=== PATIENT | female | born 1990 | race Two or more races ===

== ENCOUNTER 2023-04-30 13:00 | Inpatient (IN) | payer OTHER ==
[2023-04-30 13:53] VITALS: BMI 26.6
[2023-04-30] MEDS ORDERED: IBUPROFEN 600 MG TABLET (FP) PO PRN (15:53)
[2023-04-30] MEDS ORDERED: ONDANSETRON *ODT* 4 MG TABLET SL PRN (15:53)
[2023-04-30] MEDS ORDERED: LOPERAMIDE HCL 2 MG CAPSULE PO PRN (15:53)
[2023-04-30] MEDS ORDERED: DICYCLOMINE HCL 10 MG CAPSULE PO PRN (15:53)
[2023-04-30] MEDS ORDERED: IBUPROFEN 400 MG TABLET (FP) PO PRN (15:53)
[2023-04-30] MEDS ORDERED: BENZONATATE 200 MG CAPSULE PO PRN (15:53)
[2023-04-30] MEDS ORDERED: POLYETHYLENE GLYCOL (HEALTHYLAX) 3350 17 GM PACKET PO PRN (15:53)
[2023-04-30] MEDS ORDERED: ACETAMINOPHEN 325 MG TABLET (FP) PO PRN (15:53)
[2023-04-30] MEDS ORDERED: NALOXONE HCL 0.4 MG/ML VIAL IM PRN (15:53)
[2023-04-30] MEDS ORDERED: MAGNESIUM HYDROX 2400MG/30ML ORAL SUSPENSION 30 ML CUP PO PRN (15:53)
[2023-04-30] MEDS ORDERED: NALOXONE HCL (KLOXXADO) 8 MG SPRAY NS PRN (15:53)
[2023-04-30] MEDS ORDERED: MAG HYDROX/AL HYDROX/SIMETH 30 ML UNIT-DOSE CUP PO PRN (15:53)
[2023-04-30] MEDS ORDERED: BISMUTH SUBSALICYLATE 524 MG/30 ML PO PRN (15:53)
[2023-04-30] MEDS: ALBUTEROL SO4 HFA INHALER IH PRN (18:08)
[2023-04-30] MEDS: PRENATAL VITAMINS W/ FOLIC ACID TABLET (FP) PO SCH (18:09)
[2023-04-30] MEDS: NICOTINE 21 MG/24 HOURS TOPICAL PATCH TD SCH (18:09)
[2023-04-30] MEDS: hydrOXYzine PAMOATE 25 MG CAPSULE (FP) PO PRN (22:12)
[2023-04-30] MEDS: MELATONIN 5 MG TABLETS PO SCH (22:13)
[2023-04-30] MEDS: THIAMINE HCL 100 MG TABLET (FP) PO SCH (22:13)
[2023-04-30] MEDS: METHOCARBAMOL 500 MG TABLET PO PRN (22:13)
[2023-05-01] MEDS: ALBUTEROL SO4 HFA INHALER IH PRN ×2 (05:55→14:17)
[2023-05-01] MEDS ORDERED: chlordiazePOXIDE HCL 10 MG CAPSULE PO PRN (09:36)
[2023-05-01 10:05] LABS: HEMATOCRIT 36.8 % (32.4-45.2); HEMOGLOBIN 12.4 GM/dL (10.7-15.3); MCH 32.8 pg (25.7-33.7); MCHC 33.7 g/dl (32.0-36.0); MEAN CELL VOLUME 97.3 fl (80-96); MEAN PLT VOLUME 8.7 fl (7.5-11.1); PLATELET COUNT 297 10^3/uL (134-434); RBC 3.78 M/mm3 (3.60-5.2); RDW 17.5 % (11.6-15.6); WHITE BLOOD COUNT 3.9 K/mm3 (4.0-10.0)
[2023-05-01 10:28] LABS: CHLORIDE 110 mmol/L (98-107); POTASSIUM 3.8 mmol/L (3.5-5.1); SODIUM 139 mmol/L (136-145)
[2023-05-01] MEDS: PRENATAL VITAMINS W/ FOLIC ACID TABLET (FP) PO SCH (10:29)
[2023-05-01] MEDS: NICOTINE 21 MG/24 HOURS TOPICAL PATCH TD SCH (10:29)
[2023-05-01 10:34] LABS: CALCIUM 8.3 mg/dL (8.5-10.1)
[2023-05-01 10:35] LABS: ALBUMIN 3.4 g/dl (3.4-5.0); ANION GAP 4 mmol/L (4-13); BLOOD UREA NITROGEN 9.9 mg/dL (7-18); CO2 24 mmol/L (21-32); GLUCOSE,RANDOM 92 mg/dL (74-106)
[2023-05-01 10:38] LABS: CREATININE 0.7 mg/dL (0.55-1.3); SGOT/AST 21 U/L (15-37); SGPT/ALT 25 U/L (13-61)
[2023-05-01 10:40] LABS: BILIRUBIN,TOTAL 0.6 mg/dL (0.2-1); TOT PROT 6.7 g/dl (6.4-8.2)
[2023-05-01 10:41] LABS: ALK PHOS 85 U/L (45-117)
[2023-05-01] MEDS ORDERED: cloNIDine HCL 0.1 MG TABLET PO PRN (11:37)
[2023-05-01 11:39] LABS: HIV INTERPRETATION NEGATIVE (NEGATIVE)
[2023-05-01] MEDS ORDERED: FLU VACCINE (FLULAVAL) PF 60 MCG/0.5 ML SYRINGE 2023-2024 IM ONE (12:00)
[2023-05-01] MEDS ORDERED: PNEUMOCOCCAL 23 VACCINE 0.5 ML VIAL IM ONE (12:00)
[2023-05-01] MEDS: chlordiazePOXIDE HCL 25 MG CAPSULE PO SCH ×2 (17:13→22:04)
[2023-05-01] MEDS: guaiFENesin 600 MG TABLET.ER (FP) PO PRN (17:18)
[2023-05-01] MEDS: THIAMINE HCL 100 MG TABLET (FP) PO SCH (22:03)
[2023-05-01] MEDS: MELATONIN 5 MG TABLETS PO SCH (22:04)
[2023-05-02] MEDS ORDERED: chlordiazePOXIDE 5 MG CAPSULE ONE (05:30)
[2023-05-02] MEDS: chlordiazePOXIDE HCL 25 MG CAPSULE PO SCH ×4 (05:31→22:15)
[2023-05-02] MEDS: ALBUTEROL SO4 HFA INHALER IH PRN (10:18)
[2023-05-02] MEDS: PRENATAL VITAMINS W/ FOLIC ACID TABLET (FP) PO SCH (10:18)
[2023-05-02] MEDS: NICOTINE 21 MG/24 HOURS TOPICAL PATCH TD SCH (10:18)
[2023-05-02] MEDS: guaiFENesin 600 MG TABLET.ER (FP) PO PRN (17:25)
[2023-05-02] MEDS: hydrOXYzine PAMOATE 25 MG CAPSULE (FP) PO PRN (17:29)
[2023-05-02] MEDS: MELATONIN 5 MG TABLETS PO SCH (22:14)
[2023-05-02] MEDS: METHOCARBAMOL 500 MG TABLET PO PRN (22:14)
[2023-05-02] MEDS: THIAMINE HCL 100 MG TABLET (FP) PO SCH (22:14)
[2023-05-03] MEDS: chlordiazePOXIDE HCL 10 MG CAPSULE PO SCH ×4 (05:20→22:50)
[2023-05-03] MEDS: ALBUTEROL SO4 HFA INHALER IH PRN ×3 (05:20→17:33)
[2023-05-03] MEDS: METHOCARBAMOL 500 MG TABLET PO PRN (10:10)
[2023-05-03] MEDS: PRENATAL VITAMINS W/ FOLIC ACID TABLET (FP) PO SCH (10:10)
[2023-05-03] MEDS: NICOTINE 21 MG/24 HOURS TOPICAL PATCH TD SCH (10:10)
[2023-05-03] MEDS ORDERED: diphenhydrAMINE HCL 25 MG CAPSULE (FP) PO ONE (16:36)
[2023-05-03] MEDS: MELATONIN 5 MG TABLETS PO SCH (22:50)
[2023-05-03] MEDS: THIAMINE HCL 100 MG TABLET (FP) PO SCH (22:50)
[2023-05-04] MEDS: chlordiazePOXIDE HCL 10 MG CAPSULE PO SCH ×2 (05:33→17:43)
[2023-05-04] MEDS: ALBUTEROL SO4 HFA INHALER IH PRN ×3 (05:42→17:50)
[2023-05-04] MEDS: NICOTINE 21 MG/24 HOURS TOPICAL PATCH TD SCH (09:25)
[2023-05-04] MEDS: PRENATAL VITAMINS W/ FOLIC ACID TABLET (FP) PO SCH (09:25)
[2023-05-04] MEDS: hydrOXYzine PAMOATE 25 MG CAPSULE (FP) PO PRN ×2 (14:06→22:22)
[2023-05-04] MEDS ORDERED: chlordiazePOXIDE 5 MG CAPSULE ONE (16:35)
[2023-05-04] MEDS: BENZOCAINE/MENTHOL (CHLORASEPTIC ) LOZENGE MM PRN ×2 (17:46→22:40)
[2023-05-04] MEDS: MELATONIN 5 MG TABLETS PO SCH (22:22)
[2023-05-04] MEDS: METHOCARBAMOL 500 MG TABLET PO PRN (22:22)
[2023-05-04] MEDS: THIAMINE HCL 100 MG TABLET (FP) PO SCH (22:23)
[2023-05-05] MEDS ORDERED: chlordiazePOXIDE HCL 10 MG CAPSULE PO ONE (05:00)
[2023-05-05] MEDS: ALBUTEROL SO4 HFA INHALER IH PRN (05:42)
[2023-05-05 10:24] VITALS: BP 128/78; PULSE 70; RESP 16; TEMP 97.5
[2023-05-05] MEDS: NICOTINE 21 MG/24 HOURS TOPICAL PATCH TD SCH (10:43)
[2023-05-05] MEDS: PRENATAL VITAMINS W/ FOLIC ACID TABLET (FP) PO SCH (10:43)
== END 2023-05-05 10:20 | disposition home or self-care (01) | DRG 774 ==
LOC: YASAS 13:00 → Y6N 16:35
PROVIDERS: ADMIT Allergy & Immunology; ATTEND Allergy & Immunology
PROC: HZ2ZZZZ Detoxification Services for Substance Abuse Treatment (ICD-10-PCS; principal; 2023-04-30)
DX: F10.230 Alcohol dependence with withdrawal, uncomplicated (principal); F14.10 Cocaine abuse, uncomplicated; F17.210 Nicotine dependence, cigarettes, uncomplicated; F41.9 Anxiety disorder, unspecified; J45.20 Mild intermittent asthma, uncomplicated; L27.2 Dermatitis due to ingested food; Z91.012 Allergy to eggs; Z91.010 Allergy to peanuts
CPT/HCPCS: 36415; 80053; 80307; 81025; 85027; 86780; 87389; 87635; 87811; 90686; 90732; 93005; 93010; G0008; G0009

== ENCOUNTER 2023-06-18 11:55 | Inpatient (IN) | payer OTHER ==
[2023-06-18 13:27] VITALS: BMI 26.6
[2023-06-18] MEDS ORDERED: BENZONATATE 200 MG CAPSULE PO PRN (14:04)
[2023-06-18] MEDS ORDERED: ONDANSETRON *ODT* 4 MG TABLET SL PRN (14:04)
[2023-06-18] MEDS ORDERED: POLYETHYLENE GLYCOL (HEALTHYLAX) 3350 17 GM PACKET PO PRN (14:04)
[2023-06-18] MEDS ORDERED: NALOXONE HCL (KLOXXADO) 8 MG SPRAY NS PRN (14:04)
[2023-06-18] MEDS ORDERED: guaiFENesin 600 MG TABLET.ER (FP) PO PRN (14:04)
[2023-06-18] MEDS ORDERED: BENZOCAINE/MENTHOL (CHLORASEPTIC ) LOZENGE MM PRN (14:04)
[2023-06-18] MEDS ORDERED: BISMUTH SUBSALICYLATE 262 MG/15 ML BTL PO PRN (14:04)
[2023-06-18] MEDS ORDERED: LOPERAMIDE HCL 2 MG CAPSULE PO PRN (14:04)
[2023-06-18] MEDS ORDERED: DICYCLOMINE HCL 10 MG CAPSULE PO PRN (14:04)
[2023-06-18] MEDS ORDERED: IBUPROFEN 400 MG TABLET (FP) PO PRN (14:04)
[2023-06-18] MEDS ORDERED: MAG HYDROX/AL HYDROX/SIMETH 30 ML UNIT-DOSE CUP PO PRN (14:04)
[2023-06-18] MEDS ORDERED: NALOXONE HCL 0.4 MG/ML VIAL IM PRN (14:04)
[2023-06-18] MEDS ORDERED: MAGNESIUM HYDROX 2400MG/30ML ORAL SUSPENSION 30 ML CUP PO PRN (14:04)
[2023-06-18] MEDS: PRENATAL VITAMINS W/ FOLIC ACID TABLET (FP) PO SCH (14:58)
[2023-06-18] MEDS: chlordiazePOXIDE HCL 25 MG CAPSULE PO PRN (15:56)
[2023-06-18] MEDS: ALBUTEROL SO4 HFA INHALER IH PRN (18:56)
[2023-06-18] MEDS: IBUPROFEN 600 MG TABLET (FP) PO PRN (22:11)
[2023-06-18] MEDS: chlordiazePOXIDE HCL 25 MG CAPSULE PO SCH (22:11)
[2023-06-18] MEDS: MELATONIN 5 MG TABLETS PO SCH (22:12)
[2023-06-18] MEDS: THIAMINE HCL 100 MG TABLET (FP) PO SCH (22:12)
[2023-06-19] MEDS: METHOCARBAMOL 500 MG TABLET PO PRN (05:46)
[2023-06-19] MEDS: hydrOXYzine PAMOATE 25 MG CAPSULE (FP) PO PRN (05:46)
[2023-06-19 11:43] LABS: HEMATOCRIT 32.2 % (32.4-45.2); HEMOGLOBIN 10.6 GM/dL (10.7-15.3); MCH 32.8 pg (25.7-33.7); MEAN CELL VOLUME 99.2 fl (80-96); MEAN PLT VOLUME 8.2 fl (7.5-11.1); PLATELET COUNT 290 10^3/uL (134-434); RBC 3.25 M/mm3 (3.60-5.2); RDW 16.5 % (11.6-15.6); WHITE BLOOD COUNT 2.9 K/mm3 (4.0-10.0)
[2023-06-19 11:49] LABS: CHLORIDE 113 mmol/L (98-107); POTASSIUM 3.6 mmol/L (3.5-5.1); SODIUM 144 mmol/L (136-145)
[2023-06-19 11:56] LABS: GLUCOSE,RANDOM 109 mg/dL (74-106)
[2023-06-19 11:57] LABS: ALBUMIN 2.9 g/dl (3.4-5.0); ANION GAP 5 mmol/L (4-13); BLOOD UREA NITROGEN 12.8 mg/dL (7-18); CALCIUM 8.4 mg/dL (8.5-10.1); CO2 26 mmol/L (21-32)
[2023-06-19 11:59] LABS: CREATININE 0.6 mg/dL (0.55-1.3); SGOT/AST 19 U/L (15-37); SGPT/ALT 21 U/L (13-61)
[2023-06-19 12:00] LABS: BILIRUBIN,TOTAL 0.3 mg/dL (0.2-1)
[2023-06-19 12:01] LABS: ALK PHOS 69 U/L (45-117); TOT PROT 5.8 g/dl (6.4-8.2)
[2023-06-19] MEDS: NICOTINE POLACRILEX 2 MG GUM BUC PRN (22:47)
[2023-06-20] MEDS: chlordiazePOXIDE HCL 25 MG CAPSULE PO SCH (05:35)
[2023-06-20] MEDS: ACETAMINOPHEN 325 MG TABLET (FP) PO PRN (10:21)
[2023-06-20] MEDS: NICOTINE 7 MG/24 HOURS TOPICAL PATCH TD SCH (14:01)
[2023-06-20] MEDS: NALTREXONE HCL 50 MG TABLET PO SCH (15:00)
[2023-06-20 17:01] VITALS: BP 118/64; RESP 18; TEMP 98.7
[2023-06-20 17:48] VITALS: PULSE 60
[2023-06-21] MEDS ORDERED: chlordiazePOXIDE HCL 10 MG CAPSULE PO PRN
[2023-06-21] MEDS ORDERED: chlordiazePOXIDE HCL 10 MG CAPSULE PO SCH (05:00)
[2023-06-21] MEDS ORDERED: NALTREXONE HCL 50 MG TABLET PO SCH (10:00)
[2023-06-22] MEDS ORDERED: chlordiazePOXIDE HCL 10 MG CAPSULE PO SCH (05:00)
[2023-06-23] MEDS ORDERED: chlordiazePOXIDE HCL 10 MG CAPSULE PO ONE (05:00)
== END 2023-06-20 18:12 | disposition home or self-care (01) | DRG 774 ==
LOC: YASAS 11:55 → Y3N 14:29
PROVIDERS: ADMIT Allergy & Immunology; ATTEND Surgery
PROC: HZ2ZZZZ Detoxification Services for Substance Abuse Treatment (ICD-10-PCS; principal; 2023-06-18)
DX: F10.230 Alcohol dependence with withdrawal, uncomplicated (principal); F14.10 Cocaine abuse, uncomplicated; F12.20 Cannabis dependence, uncomplicated; F17.210 Nicotine dependence, cigarettes, uncomplicated; F31.9 Bipolar disorder, unspecified
CPT/HCPCS: 36415; 80053; 80305; 80307; 85027; 86780; 87811; 93005; 93010

== ENCOUNTER 2023-07-16 14:19 | Inpatient (IN) | payer OTHER ==
[2023-07-16 15:10] VITALS: BMI 25.9
[2023-07-16] MEDS ORDERED: MAG HYDROX/AL HYDROX/SIMETH 30 ML UNIT-DOSE CUP PO PRN (16:06)
[2023-07-16] MEDS ORDERED: MAGNESIUM HYDROX 2400MG/30ML ORAL SUSPENSION 30 ML CUP PO PRN (16:06)
[2023-07-16] MEDS ORDERED: ONDANSETRON *ODT* 4 MG TABLET SL PRN (16:06)
[2023-07-16] MEDS ORDERED: chlordiazePOXIDE HCL 25 MG CAPSULE PO PRN (16:06)
[2023-07-16] MEDS ORDERED: POLYETHYLENE GLYCOL (HEALTHYLAX) 3350 17 GM PACKET PO PRN (16:06)
[2023-07-16] MEDS ORDERED: LOPERAMIDE HCL 2 MG CAPSULE PO PRN (16:06)
[2023-07-16] MEDS ORDERED: BENZONATATE 200 MG CAPSULE PO PRN (16:06)
[2023-07-16] MEDS ORDERED: ACETAMINOPHEN 325 MG TABLET (FP) PO PRN (16:06)
[2023-07-16] MEDS ORDERED: BISMUTH SUBSALICYLATE 524 MG/30 ML PO PRN (16:06)
[2023-07-16] MEDS ORDERED: BENZOCAINE/MENTHOL (CHLORASEPTIC ) LOZENGE MM PRN (16:06)
[2023-07-16] MEDS ORDERED: IBUPROFEN 400 MG TABLET (FP) PO PRN (16:06)
[2023-07-16] MEDS ORDERED: NALOXONE HCL (KLOXXADO) 8 MG SPRAY NS PRN (16:06)
[2023-07-16] MEDS ORDERED: DICYCLOMINE HCL 10 MG CAPSULE PO PRN (16:06)
[2023-07-16] MEDS ORDERED: NALOXONE HCL 0.4 MG/ML VIAL IM PRN (16:06)
[2023-07-16] MEDS ORDERED: guaiFENesin 600 MG TABLET.ER (FP) PO PRN (16:06)
[2023-07-16] MEDS ORDERED: chlordiazePOXIDE HCL 25 MG CAPSULE ONE (16:55)
[2023-07-16] MEDS: chlordiazePOXIDE HCL 25 MG CAPSULE PO SCH (16:59)
[2023-07-16] MEDS: NICOTINE 21 MG/24 HOURS TOPICAL PATCH TD SCH (17:33)
[2023-07-16] MEDS: LORATADINE 10 MG TABLET PO SCH (17:33)
[2023-07-16] MEDS: ALBUTEROL SO4 HFA INHALER IH PRN (17:33)
[2023-07-16] MEDS: PRENATAL VITAMINS W/ FOLIC ACID TABLET (FP) PO SCH (17:33)
[2023-07-16] MEDS: MELATONIN 5 MG TABLETS PO SCH (22:12)
[2023-07-16] MEDS: THIAMINE HCL 100 MG TABLET (FP) PO SCH (22:13)
[2023-07-17 11:37] LABS: HEMATOCRIT 37.3 % (32.4-45.2); HEMOGLOBIN 11.9 GM/dL (10.7-15.3); MCH 32.2 pg (25.7-33.7); MCHC 31.9 g/dl (32.0-36.0); MEAN CELL VOLUME 101.1 fl (80-96); MEAN PLT VOLUME 8.6 fl (7.5-11.1); PLATELET COUNT 293 10^3/uL (134-434); RBC 3.69 M/mm3 (3.60-5.2); RDW 16.4 % (11.6-15.6); WHITE BLOOD COUNT 3.8 K/mm3 (4.0-10.0)
[2023-07-17 12:50] LABS: CHLORIDE 110 mmol/L (98-107); POTASSIUM 3.6 mmol/L (3.5-5.1); SODIUM 140 mmol/L (136-145)
[2023-07-17 12:53] LABS: CALCIUM 8.3 mg/dL (8.5-10.1); GLUCOSE,RANDOM 101 mg/dL (74-106)
[2023-07-17 12:54] LABS: ALBUMIN 3.2 g/dl (3.4-5.0); ANION GAP 2 mmol/L (4-13); BLOOD UREA NITROGEN 10.7 mg/dL (7-18); CO2 29 mmol/L (21-32)
[2023-07-17 12:57] LABS: CREATININE 0.8 mg/dL (0.55-1.3); SGOT/AST 15 U/L (15-37); SGPT/ALT 19 U/L (13-61)
[2023-07-17 12:58] LABS: BILIRUBIN,TOTAL 0.3 mg/dL (0.2-1); TOT PROT 6.2 g/dl (6.4-8.2)
[2023-07-17 12:59] LABS: ALK PHOS 100 U/L (45-117)
[2023-07-17] MEDS: ALBUTEROL SO4 2.5/IPRATROPIUM 0.5 INH SOL 3 ML VIAL.NEB. NEB ONE (16:19)
[2023-07-17] MEDS: MONTELUKAST NA 10 MG TABLET PO SCH (16:20)
[2023-07-17] MEDS: predniSONE 20 MG TABLET (UD) PO SCH (16:20)
[2023-07-18] MEDS: ALBUTEROL SO4 2.5/IPRATROPIUM 0.5 INH SOL 3 ML VIAL.NEB. NEB PRN (03:54)
[2023-07-18] MEDS: chlordiazePOXIDE HCL 25 MG CAPSULE PO SCH (05:22)
[2023-07-18] MEDS: IBUPROFEN 600 MG TABLET (FP) PO PRN (17:31)
[2023-07-18] MEDS: METHOCARBAMOL 500 MG TABLET PO PRN (22:18)
[2023-07-19] MEDS ORDERED: chlordiazePOXIDE HCL 10 MG CAPSULE PO PRN
[2023-07-19] MEDS: chlordiazePOXIDE HCL 10 MG CAPSULE PO SCH (05:40)
[2023-07-19] MEDS: ALBUTEROL SO4 2.5/IPRATROPIUM 0.5 INH SOL 3 ML VIAL.NEB. NEB PRN (06:26)
[2023-07-19] MEDS: hydrOXYzine PAMOATE 25 MG CAPSULE (FP) PO PRN (22:08)
[2023-07-20] MEDS: chlordiazePOXIDE HCL 10 MG CAPSULE PO SCH (05:33)
[2023-07-21] MEDS: chlordiazePOXIDE HCL 10 MG CAPSULE PO ONE (05:30)
[2023-07-21 09:16] VITALS: BP 107/63; PULSE 69; RESP 18; TEMP 97.5
== END 2023-07-21 10:14 | disposition home or self-care (01) | DRG 774 ==
LOC: YASAS 14:19 → Y3N 16:28
PROVIDERS: ADMIT Allergy & Immunology; ATTEND Surgery
PROC: HZ2ZZZZ Detoxification Services for Substance Abuse Treatment (ICD-10-PCS; principal; 2023-07-16)
DX: F10.230 Alcohol dependence with withdrawal, uncomplicated (principal); F14.20 Cocaine dependence, uncomplicated; F12.20 Cannabis dependence, uncomplicated; F17.210 Nicotine dependence, cigarettes, uncomplicated; F31.9 Bipolar disorder, unspecified; F41.9 Anxiety disorder, unspecified; J45.909 Unspecified asthma, uncomplicated
CPT/HCPCS: 36415; 73610-TC-LT-FY; 80053; 80307; 81025; 85027; 86780; 93005; 93010; 94640

== ENCOUNTER 2023-10-24 11:36 | Inpatient (IN) | payer OTHER ==
[2023-10-24 12:51] VITALS: BMI 28.8
[2023-10-24] MEDS ORDERED: ONDANSETRON *ODT* 4 MG TABLET SL PRN (13:41)
[2023-10-24] MEDS ORDERED: ACETAMINOPHEN 325 MG TABLET (FP) PO PRN (13:41)
[2023-10-24] MEDS ORDERED: IBUPROFEN 400 MG TABLET (FP) PO PRN (13:41)
[2023-10-24] MEDS ORDERED: POLYETHYLENE GLYCOL (HEALTHYLAX) 3350 17 GM PACKET PO PRN (13:41)
[2023-10-24] MEDS ORDERED: BENZONATATE 200 MG CAPSULE PO PRN (13:41)
[2023-10-24] MEDS ORDERED: guaiFENesin 600 MG TABLET.ER (FP) PO PRN (13:41)
[2023-10-24] MEDS ORDERED: NALOXONE (NARCAN) HCL 4 MG/0.1 ML SPRAY NS PRN (13:41)
[2023-10-24] MEDS ORDERED: LOPERAMIDE HCL 2 MG CAPSULE PO PRN (13:41)
[2023-10-24] MEDS ORDERED: BISMUTH SUBSALICYLATE 262 MG/15 ML BTL PO PRN (13:41)
[2023-10-24] MEDS ORDERED: IBUPROFEN 600 MG TABLET (FP) PO PRN (13:41)
[2023-10-24] MEDS ORDERED: MAGNESIUM HYDROX 2400MG/30ML ORAL SUSPENSION 30 ML CUP PO PRN (13:41)
[2023-10-24] MEDS ORDERED: BENZOCAINE/MENTHOL (CHLORASEPTIC ) LOZENGE MM PRN (13:41)
[2023-10-24] MEDS ORDERED: MAG HYDROX/AL HYDROX/SIMETH 30 ML UNIT-DOSE CUP PO PRN (13:41)
[2023-10-24] MEDS ORDERED: DICYCLOMINE HCL 10 MG CAPSULE PO PRN (13:41)
[2023-10-24] MEDS ORDERED: NALOXONE HCL 0.4 MG/ML VIAL IM PRN (13:41)
[2023-10-24] MEDS: ALBUTEROL SO4 HFA INHALER IH PRN (15:43)
[2023-10-24] MEDS: NICOTINE POLACRILEX 2 MG GUM BUC PRN (17:27)
[2023-10-24] MEDS: THIAMINE 100 MG TABLET PO SCH (21:43)
[2023-10-24] MEDS: METHOCARBAMOL 500 MG TABLET PO PRN (21:43)
[2023-10-24] MEDS: MELATONIN 5 MG TABLETS PO SCH (21:43)
[2023-10-24] MEDS: hydrOXYzine PAMOATE 25 MG CAPSULE (FP) PO PRN (21:43)
[2023-10-25] MEDS ORDERED: ALBUTEROL SO4 HFA INHALER IH PRN (06:46)
[2023-10-25] MEDS: PRENATAL VITAMINS W/ FOLIC ACID TABLET (FP) PO SCH (10:09)
[2023-10-25] MEDS: NICOTINE 14 MG/24 HOURS TOPICAL PATCH TD SCH (10:09)
[2023-10-25] MEDS: chlordiazePOXIDE HCL 25 MG CAPSULE PO SCH (11:31)
[2023-10-25 14:21] LABS: HEMATOCRIT 35.2 % (32.4-45.2); HEMOGLOBIN 11.6 GM/dL (10.7-15.3); MCH 32.7 pg (25.7-33.7); MCHC 32.8 g/dl (32.0-36.0); MEAN CELL VOLUME 99.7 fl (80-96); MEAN PLT VOLUME 8.3 fl (7.5-11.1); PLATELET COUNT 293 10^3/uL (134-434); RBC 3.53 M/mm3 (3.60-5.2); RDW 15.3 % (11.6-15.6)
[2023-10-25 14:31] LABS: CHLORIDE 109 mmol/L (98-107); POTASSIUM 3.7 mmol/L (3.5-5.1); SODIUM 140 mmol/L (136-145)
[2023-10-25 14:51] LABS: CALCIUM 8.2 mg/dL (8.5-10.1)
[2023-10-25 14:52] LABS: ALBUMIN 3.1 g/dl (3.4-5.0); ANION GAP 6 mmol/L (4-13); CO2 25 mmol/L (21-32); GLUCOSE,RANDOM 115 mg/dL (74-106)
[2023-10-25 14:55] LABS: CREATININE 0.8 mg/dL (0.55-1.3); SGOT/AST 36 U/L (15-37); SGPT/ALT 44 U/L (13-61)
[2023-10-25 14:58] LABS: ALK PHOS 84 U/L (45-117)
[2023-10-25 14:59] LABS: BILIRUBIN,TOTAL 0.6 mg/dL (0.2-1)
[2023-10-25] MEDS: MONTELUKAST NA 10 MG TABLET PO SCH (22:17)
[2023-10-26] MEDS: chlordiazePOXIDE HCL 25 MG CAPSULE PO PRN (13:11)
[2023-10-27] MEDS: chlordiazePOXIDE HCL 25 MG CAPSULE PO SCH (05:42)
[2023-10-28] MEDS ORDERED: chlordiazePOXIDE HCL 10 MG CAPSULE PO PRN
[2023-10-28] MEDS: chlordiazePOXIDE HCL 10 MG CAPSULE PO SCH (05:50)
[2023-10-28] MEDS: NICOTINE 21 MG/24 HOURS TOPICAL PATCH TD SCH (10:18)
[2023-10-28] MEDS: diphenhydrAMINE HCL 25 MG CAPSULE (FP) PO PRN (16:22)
[2023-10-29] MEDS: chlordiazePOXIDE HCL 10 MG CAPSULE PO SCH (05:41)
[2023-10-29] MEDS ORDERED: HYDROCORTISONE 0.5% TOPICAL OINTMENT TUBE TP PRN (10:04)
[2023-10-29] MEDS: HYDROCORTISONE 0.5% TOPICAL CREAM 30 GM TUBE TP PRN (13:50)
[2023-10-30] MEDS: chlordiazePOXIDE HCL 10 MG CAPSULE PO ONE (05:57)
[2023-10-30] MEDS: traZODone HCL 50 MG TABLET (FP) PO SCH (22:21)
[2023-10-31] MEDS: ESCITALOPRAM OXALATE 20 MG TABLET PO SCH (09:17)
[2023-10-31 13:25] VITALS: BP 114/69; PULSE 61; RESP 18; TEMP 97.7
[2023-10-31] MEDS ORDERED: MAGNESIUM HYDROX 2400MG/30ML ORAL SUSPENSION 30 ML CUP PO PRN (15:29)
[2023-10-31] MEDS ORDERED: NALOXONE HCL 0.4 MG/ML VIAL IVPUSH PRN (15:29)
[2023-10-31] MEDS ORDERED: POLYETHYLENE GLYCOL (HEALTHYLAX) 3350 17 GM PACKET PO PRN (15:29)
[2023-10-31] MEDS ORDERED: hydrOXYzine PAMOATE 25 MG CAPSULE (FP) PO PRN (15:29)
[2023-10-31] MEDS ORDERED: IBUPROFEN 600 MG TABLET (FP) PO PRN (15:29)
[2023-10-31] MEDS ORDERED: MAG HYDROX/AL HYDROX/SIMETH 30 ML UNIT-DOSE CUP PO PRN (15:29)
[2023-10-31] MEDS ORDERED: NALOXONE (NARCAN) HCL 4 MG/0.1 ML SPRAY NS PRN (15:29)
[2023-10-31] MEDS ORDERED: BENZOCAINE/MENTHOL (CHLORASEPTIC ) LOZENGE MM PRN (15:29)
[2023-10-31] MEDS ORDERED: METHOCARBAMOL 500 MG TABLET PO PRN (15:29)
[2023-10-31] MEDS ORDERED: BENZONATATE 200 MG CAPSULE PO PRN (15:29)
[2023-10-31] MEDS ORDERED: guaiFENesin 600 MG TABLET.ER (FP) PO PRN (15:29)
[2023-10-31] MEDS ORDERED: LOPERAMIDE HCL 2 MG CAPSULE PO PRN (15:29)
[2023-10-31] MEDS ORDERED: ACETAMINOPHEN 325 MG TABLET (FP) PO PRN (15:29)
[2023-10-31] MEDS ORDERED: IBUPROFEN 400 MG TABLET (FP) PO PRN (15:29)
[2023-10-31] MEDS ORDERED: MONTELUKAST NA 5 MG TAB.CHEW PO SCH (22:00)
[2023-10-31] MEDS ORDERED: MELATONIN 5 MG TABLETS PO SCH (22:00)
[2023-10-31] MEDS ORDERED: THIAMINE 100 MG TABLET PO SCH (22:00)
[2023-11-01] MEDS ORDERED: PRENATAL VITAMINS W/ FOLIC ACID TABLET (FP) PO SCH (10:00)
== END 2023-10-31 13:45 | disposition other institution (70) | DRG 774 ==
LOC: YASAS 11:36 → Y3N 14:06
PROVIDERS: ADMIT Allergy & Immunology; ATTEND Surgery
PROC: HZ2ZZZZ Detoxification Services for Substance Abuse Treatment (ICD-10-PCS; principal; 2023-10-24)
DX: F10.230 Alcohol dependence with withdrawal, uncomplicated (principal); F14.20 Cocaine dependence, uncomplicated; F17.210 Nicotine dependence, cigarettes, uncomplicated; F31.9 Bipolar disorder, unspecified; J45.909 Unspecified asthma, uncomplicated; G47.00 Insomnia, unspecified; Z91.199 Patient's noncompliance with other medical treatment and regimen due to unspecified reason; Z56.0 Unemployment, unspecified
CPT/HCPCS: 36415; 80053; 80305; 80307; 81025; 85027; 86780; 93005; 93010

== ENCOUNTER 2023-10-31 13:45 | Inpatient (IN) | payer OTHER ==
[2023-10-31] MEDS ORDERED: IBUPROFEN 400 MG TABLET (FP) PO PRN (23:04)
[2023-10-31] MEDS ORDERED: POLYETHYLENE GLYCOL (HEALTHYLAX) 3350 17 GM PACKET PO PRN (23:04)
[2023-10-31] MEDS ORDERED: BENZOCAINE/MENTHOL (CHLORASEPTIC ) LOZENGE MM PRN (23:04)
[2023-10-31] MEDS ORDERED: ACETAMINOPHEN 325 MG TABLET (FP) PO PRN (23:04)
[2023-10-31] MEDS ORDERED: BENZONATATE 200 MG CAPSULE PO PRN (23:04)
[2023-10-31] MEDS ORDERED: MAG HYDROX/AL HYDROX/SIMETH 30 ML UNIT-DOSE CUP PO PRN (23:04)
[2023-10-31] MEDS ORDERED: MAGNESIUM HYDROX 2400MG/30ML ORAL SUSPENSION 30 ML CUP PO PRN (23:04)
[2023-10-31] MEDS ORDERED: LOPERAMIDE HCL 2 MG CAPSULE PO PRN (23:04)
[2023-10-31] MEDS ORDERED: NICOTINE POLACRILEX 2 MG LOZENGE BC PRN (23:04)
[2023-10-31] MEDS ORDERED: guaiFENesin 600 MG TABLET.ER (FP) PO PRN (23:04)
[2023-10-31] MEDS: MELATONIN 5 MG TABLETS PO SCH (23:17)
[2023-10-31] MEDS: ALBUTEROL SO4 HFA INHALER IH PRN (23:17)
[2023-10-31] MEDS: hydrOXYzine PAMOATE 25 MG CAPSULE (FP) PO PRN (23:17)
[2023-10-31] MEDS: METHOCARBAMOL 500 MG TABLET PO PRN (23:19)
[2023-11-01] MEDS: ESCITALOPRAM OXALATE 20 MG TABLET PO SCH (09:04)
[2023-11-01] MEDS: PRENATAL VITAMINS W/ FOLIC ACID TABLET (FP) PO SCH (09:04)
[2023-11-01] MEDS: NICOTINE 21 MG/24 HOURS TOPICAL PATCH TD SCH (11:45)
[2023-11-01 17:04] LABS: URINE APPEARANCE CLEAR; URINE BILIRUBIN NEGATIVE (NEGATIVE); URINE COLOR YELLOW; URINE GLUCOSE (UA) NEGATIVE (NEGATIVE); URINE KETONE NEGATIVE (NEGATIVE); URINE LEUK ESTERASE NEGATIVE (NEGATIVE); URINE NITRITE NEGATIVE (NEGATIVE); URINE PROTEIN NEGATIVE (NEGATIVE); URINE UROBILINOGEN 0.2 mg/dL (0.2-1.0)
[2023-11-01] MEDS: traZODone HCL 50 MG TABLET (FP) PO SCH (21:36)
[2023-11-01] MEDS: MONTELUKAST NA 10 MG TABLET PO SCH (21:36)
[2023-11-01] MEDS: THIAMINE 100 MG TABLET PO SCH (21:36)
[2023-11-03] MEDS: HYDROCORTISONE 0.5% TOPICAL CREAM 30 GM TUBE TP PRN (16:04)
[2023-11-05] MEDS: ARTIFICIAL TEARS OPHTHALMIC DROPS OU PRN (18:12)
[2023-11-06] MEDS: AMMONIUM LACTATE 12% LOTION 225 GM BOTTLE TP PRN (09:36)
[2023-11-07] MEDS: IBUPROFEN 600 MG TABLET (FP) PO PRN (14:09)
[2023-11-07] MEDS: NALTREXONE HCL 50 MG TABLET PO SCH (14:55)
[2023-11-08 11:53] LABS: INR 0.89 (0.83-1.09); PROTHROMBIN TIME (PATIENT) 10.3 SEC (9.7-13.0)
[2023-11-08] MEDS: LACTULOSE 20 GM/30 ML UDC (FOR ORAL USE ONLY) PO SCH (18:07)
[2023-11-09] MEDS: NALTREXONE HCL 50 MG TABLET PO SCH (10:50)
[2023-11-09] MEDS: CHOLECALCIFEROL (VIT D3) 400 UNIT (10 MCG) TABLET PO SCH (10:51)
[2023-11-10] MEDS: NICOTINE POLACRILEX 2 MG GUM BUC PRN (20:10)
[2023-11-14] MEDS: NALTREXONE MICROSPHERES (VIVITROL) 380 MG DISP.SYRIN IM ONE (06:57)
[2023-11-14 07:01] VITALS: BP 136/86; PULSE 74; RESP 18; TEMP 97.1
[2023-11-14] MEDS ORDERED: NALTREXONE MICROSPHERES (VIVITROL) 380 MG DISP.SYRIN IM ONE (18:00)
== END 2023-11-14 10:15 | disposition home or self-care (01) | DRG 772 ==
LOC: YASAS 13:45 → Y3NR 13:47 → Y5N 11-01 13:10
PROVIDERS: ADMIT Allergy & Immunology; ATTEND Psychiatry & Neurology Pain Medicine
PROC: HZ42ZZZ Group Counseling for Substance Abuse Treatment, Cognitive-Behavioral (ICD-10-PCS; principal; 2023-10-31)
DX: F10.20 Alcohol dependence, uncomplicated (principal); F14.20 Cocaine dependence, uncomplicated; F17.210 Nicotine dependence, cigarettes, uncomplicated; F31.9 Bipolar disorder, unspecified; F41.9 Anxiety disorder, unspecified; J45.909 Unspecified asthma, uncomplicated; L84 Corns and callosities; H04.129 Dry eye syndrome of unspecified lacrimal gland; Z91.010 Allergy to peanuts; Z91.012 Allergy to eggs; Z91.013 Allergy to seafood; Z91.018 Allergy to other foods
CPT/HCPCS: 36415; 81003; 82140; 82306; 83735; 85610; 87811; J2315